=== PATIENT | female | born 1960 | race Caucasian/White ===

== ENCOUNTER → 2020-02-15 | Outpatient (CLI) | payer MEDICARE | LOC: M.RAD 13:30 | PROVIDERS: ATTEND Family Medicine | DX: Z78.0 Asymptomatic menopausal state (principal) ==

== ENCOUNTER 2020-11-18 19:32 | Emergency (ER) | payer MEDICARE ==
[~2020-11-18] VITALS: Ht 167.6 cm; Wt 95.3 kg
[2020-11-18] MEDS ORDERED: TIZANIDINE HCL4 M1 PO (20:21)
[2020-11-18] MEDS ORDERED: OMEPRAZOLE40 MG PO (20:21)
[2020-11-18] MEDS ORDERED: LEXAPRO 10 MG T10 MG PO (20:22)
[2020-11-18] MEDS ORDERED: HYDROCHLOROTHIA25 M1 PO (20:22)
[2020-11-18] MEDS ORDERED: MINIPRESS2 MG PO (20:22)
[2020-11-18] MEDS ORDERED: FLONASE 0.05%50 MCG NARES (20:23)
[2020-11-18] MEDS ORDERED: VITAMIN D310 MC2 PO (20:23)
[2020-11-18] MEDS ORDERED: HYDROXYZINE HCL50 MG PO (20:23)
[2020-11-18] MEDS ORDERED: MELATONIN10 M3 PO (20:24)
[2020-11-18] MEDS ORDERED: ADULT ASPIRIN R81 MG PO (20:24)
[2020-11-19] MEDS ORDERED: PREDNISONE50 MG PO (00:06)
[2020-11-19 00:18] VITALS: BP 147/81
== END 2020-11-19 00:18 | disposition home or self-care (01) ==
LOC: M.ERS 19:32
DX: J40 Bronchitis, not specified as acute or chronic (principal); Z20.822 Contact with and (suspected) exposure to COVID-19; I10 Essential (primary) hypertension; K21.9 Gastro-esophageal reflux disease without esophagitis; M79.7 Fibromyalgia; Z88.6 Allergy status to analgesic agent; Z91.040 Latex allergy status

== ENCOUNTER 2020-11-21 20:24 | Inpatient (IN) | payer MEDICARE ==
[~2020-11-21] VITALS: Ht 167.6 cm; Wt 92.1 kg
[~2020-11-21 20:24] MED LIST: ADULT ASPIRIN R81 MG PO; FLONASE 0.05%50 MCG NARES; HYDROCHLOROTHIA25 M1 PO; HYDROXYZINE HCL50 MG PO; LEXAPRO 10 MG T10 MG PO; MELATONIN10 M3 PO; MINIPRESS2 MG PO; OMEPRAZOLE40 MG PO; PREDNISONE50 MG PO; TIZANIDINE HCL4 M1 PO; VITAMIN D310 MC2 PO
[2020-11-21 20:27] VITALS: BP 147/76
[2020-11-21 20:51] LABS: HEMATOCRIT 39.7 % (37.0-47.0); HEMOGLOBIN 13.1 gm/dL (12.0-15.0); MCH 28.1 pg (26.0-34.0); MPV 7.1 fl. (7.2-11.1); NUCLEATED RBCS 0 /100WBC; PLATELET COUNT* 397 thou/uL (150-400); RBC 4.67 mil/uL (4.20-5.00); RDW-CV 13.9 % (10.5-14.5)
[2020-11-21 21:00] LABS: CALCIUM 8.8 mg/dL (8.5-10.1); CREATININE 1.2 mg/dL (0.6-1.3); POTASSIUM 3.8 mmol/L (3.5-5.1)
[2020-11-21 21:15] LABS: ALBUMIN 3.7 g/dL (3.4-5.0); MAGNESIUM 1.8 mg/dL (1.8-2.4); TOTAL BILIRUBIN 0.3 mg/dL (<0.1-1.0); TOTAL PROTEIN 8.2 g/dL (6.4-8.2)
[2020-11-21 21:17] LABS: BE 1.4 mmol/L (-2 to +3); PCO2 37.9 mmHg (35.0-45.0); PO2 67.3 mmHg (75.0-100.0); pH 7.443 (7.340-7.450)
[2020-11-21 21:47] LABS: ABSOLUTE LYMPHOCYTES 1.8 thou/uL (0.8-5.3); ABSOLUTE MONOCYTES 0.4 thou/uL (0.0-1.2); ABSOLUTE NEUTROPHILS 10.8 thou/uL (1.6-8.1); PLATELET ESTIMATE ADEQUATE
[2020-11-21 22:12] LABS: URINE BILIRUBIN NEGATIVE (Negative); URINE BLOOD NEGATIVE (Negative); URINE CLARITY CLEAR; URINE COLOR YELLOW; URINE GLUCOSE-RANDOM 3+ (Negative); URINE KETONES NEGATIVE (Negative); URINE LEUKOCYTES-REFLEX NEGATIVE (Negative); URINE NITRITE-REFLEX NEGATIVE (Negative); URINE PROTEIN NEGATIVE (Negative); URINE UROBILINOGEN 0.2 E.U./dl (0.2-1.0)
[2020-11-22 02:00] VITALS: BP 123/62
[2020-11-22 06:00] VITALS: BP 130/71
[2020-11-22 10:00] VITALS: BP 131/76
--- NOTE | 2020-11-22 11:26 | EKG ---
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 : 1960 Requested By: Jenn Ferguson Order Number: [id number] MD: Eder Candelario Measurements Intervals [place] Rate: 85 P: 21 MS: 155 QRS: -20 QRSD: 118 T: 61 QT: 383 QTc: 456 Interpretive Statements Sinus rhythm Nonspecific intraventricular conduction delay Borderline T abnormalities, anterior leads Baseline wander in lead(s) V5 No previous ECG available for comparison Electronically Signed On 11-22-2020 11:25:54 CDT by Eder Candelario [email or web address] <ELECTRONICALLY SIGNED> By: Eder Candelario MD, [facility] 11/22/20 1125 31 31 Eder Candelario MD, [facility] /EPI
[2020-11-22 14:00] VITALS: BP 143/76
--- NOTE | 2020-11-22 16:46 | NUR ---
DAUGHTER IS PATIENT'S ONLY CONTACT AND ONLY AUTHORIZED PERSON TO RELEASE MEDICAL INFORMATION TO
[2020-11-22 18:00] VITALS: BP 136/58
[2020-11-22 22:00] VITALS: BP 136/70
[2020-11-23 02:00] VITALS: BP 121/64
[2020-11-23 06:09] VITALS: BP 123/55
[2020-11-23 10:09] VITALS: BP 122/53
[2020-11-23 10:10] LABS: BE 0.9 mmol/L (-2 to +3); PCO2 40.7 mmHg (35.0-45.0); PO2 66.3 mmHg (75.0-100.0); pH 7.415 (7.340-7.450)
[2020-11-23 10:11] LABS: ABSOLUTE LYMPHOCYTES 2.1 thou/uL (0.8-5.3); ABSOLUTE MONOCYTES 0.6 thou/uL (0.0-1.2); BASOPHILS 0.3 %; EOSINOPHILS 0.2 %; HEMATOCRIT 34.6 % (37.0-47.0); HEMOGLOBIN 11.4 gm/dL (12.0-15.0); LYMPHOCYTES 14.1 %; MCHC 32.9 g/dL (28.0-37.0); MCV 84.9 fL (80.0-100.0); MONOCYTES 4.4 %; NUCLEATED RBCS 0 /100WBC; PLATELET COUNT* 344 thou/uL (150-400); RBC 4.08 mil/uL (4.20-5.00); RDW-CV 14.2 % (10.5-14.5); WBC 14.8 thou/uL (4.0-11.0)
[2020-11-23 10:19] LABS: CREATININE 0.7 mg/dL (0.6-1.3); POTASSIUM 3.8 mmol/L (3.5-5.1)
[2020-11-23 10:23] LABS: ALBUMIN 2.5 g/dL (3.4-5.0); TOTAL BILIRUBIN 0.4 mg/dL (<0.1-1.0); TOTAL PROTEIN 6.8 g/dL (6.4-8.2)
[2020-11-23 13:55] VITALS: BP 101/55
--- NOTE | 2020-11-23 14:13 | 2DMMODE ---
[place] [address] 2 D/M-MODE ECHOCARDIOGRAM Name: SUSAN GONZALEZ Room: [place] [address] ADM IN [facility]#: [id number] Admission: 11/21/20 Attend Phys: Amandeep Brown Discharge: Date of : 58 Date of Service: 11/23/20 1413 Report #: [id number] THIS REPORT FOR: cc: Pedro Hollingsworth Adam J DO Blick, David R. MD [facility] ~ APPROVED REPORT Study performed: 11/23/2020 12:46:39 EXAM: Comprehensive 2D, Doppler, and color-flow Echocardiogram Patient Location: In-Patient Room #: er Status: routine BSA: 2.01 HR: 625 bpm BP: 126/56 mmHg Rhythm: NSR Other Information Study Quality: Good Indications Chest Pain 2D Dimensions IVSd: 12.07 (7-11mm) LVOT Diam: 20.36 (18-24mm) LVDd: 42.69 mm PWd: 11.40 (7-11mm) Ascending Ao: 31.40 (22-36mm) LVDs: 26.98 (25-40mm) Aortic Root: 31.68 mm Volumes Left Atrial Volume (Systole) LA ESV Index: 19.70 mL/m2 Aortic Valve AoV Peak Cj.: 1.41 m/s AO Peak Gr.: 7.97 mmHg LVOT Max P.22 mmHg AO Mean Gr.: 3.65 mmHg LVOT Mean P.69 mmHg LVOT Max V: 1.25 m/s AO V2 VTI: 27.59 cm LVOT Mean V: 0.74 m/s CHALINO (VTI): 3.21 cm2 LVOT V1 VTI: 27.23 [place] [address] 2 D/M-MODE ECHOCARDIOGRAM Name: SUSAN GONZALEZ Room: [address] IN [facility]#: [id number] Admission: 11/21/20 Attend Phys: Amandeep Brown Discharge: Date of : 58 Date of Service: 11/23/20 1413 Report #: [id number] Mitral Valve E/A Ratio: 1.23 MV Decel. Time: 207.31 ms MV E Max Cj.: 0.99 m/s MV PHT: 60.12 ms MVA (PHT): 3.66 cm2 TDI E/Lateral E': 9.90 E/Medial E': 9.00 Medial E' Cj.: 0.11 m/s Lateral E' Cj.: 0.10 m/s Pulmonary Valve PV Peak Cj.: 0.90 m/s PV Peak Gr.: 3.27 mmHg Tricuspid Valve RAP Estimate: 5.00 mmHg TR Peak Gr.: 29.04 mmHg RVSP: 34.00 mmHg PA Pressure: 34.00 mmHg Left Ventricle The left ventricle is normal size. There is normal LV segmental wall motion. Mild concentric left ventricular hypertrophy. Left ventricular systolic function is normal. The left ventricular ejection fraction is within the normal range. LVEF is 55-60%. The left ventricular diastolic function is normal. Right Ventricle The right ventricle is normal size. The right ventricular systolic function is normal. Atria The left atrium size is normal. The right atrium size is normal. Aortic Valve The aortic valve is normal in structure. No aortic regurgitation is present. There is no aortic valvular stenosis. Mitral Valve The mitral valve is normal in structure. Trace mitral regurgitation. No evidence of mitral valve stenosis. Tricuspid Valve The tricuspid valve is normal in structure. Mild tricuspid regurgitation. estimated pa pressure 35 [place] [address] 2 D/M-MODE ECHOCARDIOGRAM Name: SUSAN GONZALEZ Room: [address] IN [facility]#: [id number] Admission: 11/21/20 Attend Phys: Amandeep Brown Discharge: Date of : 58 Date of Service: 11/23/20 1413 Report #: [id number] Pulmonic Valve The pulmonary valve is normal in structure. There is no pulmonic valvular regurgitation. Great Vessels The aortic root is normal in size. IVC is normal in size and collapses >50% with inspiration. Pericardium There is no pericardial effusion. <Conclusion> Mild concentric left ventricular hypertrophy. LVEF is 55-60%. Trace mitral regurgitation. <ELECTRONICALLY SIGNED> By: Eder Candelario MD, [facility] 11/23/20 1413 141 141 Eder Candelario MD, [facility] /INF
[2020-11-23 17:53] VITALS: BP 130/65
[2020-11-23 20:13] LABS: CALCIUM 7.9 mg/dL (8.5-10.1); MAGNESIUM 1.8 mg/dL (1.8-2.4); POTASSIUM 3.8 mmol/L (3.5-5.1)
[2020-11-23 20:18] LABS: APTT 28.9 Seconds (25.0-31.3); INR 1.1; PROTIME 11.4 Seconds (9.20-11.50)
[2020-11-23 21:00] VITALS: BP 130/68
[2020-11-23 22:13] LABS: INFLUENZA A ANTIGEN Negative (Negative); INFLUENZA B ANTIGEN Negative (Negative)
[2020-11-24] VITALS (7 sets, daily range): BP systolic 99–123; BP diastolic 49–63
[2020-11-24 05:22] LABS: HEMATOCRIT 33.4 % (37.0-47.0); HEMOGLOBIN 10.8 gm/dL (12.0-15.0); MCH 27.7 pg (26.0-34.0); MCHC 32.3 g/dL (28.0-37.0); MCV 85.7 fL (80.0-100.0); MPV 7.1 fl. (7.2-11.1); NUCLEATED RBCS 0 /100WBC; PLATELET COUNT* 369 thou/uL (150-400); RDW-CV 13.5 % (10.5-14.5); WBC 15.5 thou/uL (4.0-11.0)
[2020-11-24 05:31] LABS: ALBUMIN 2.3 g/dL (3.4-5.0); CALCIUM 8.1 mg/dL (8.5-10.1); CREATININE 0.7 mg/dL (0.6-1.3); MAGNESIUM 2.5 mg/dL (1.8-2.4); POTASSIUM 4.3 mmol/L (3.5-5.1); TOTAL BILIRUBIN 0.3 mg/dL (<0.1-1.0); TOTAL PROTEIN 6.8 g/dL (6.4-8.2)
[2020-11-24 06:19] LABS: ABSOLUTE LYMPHOCYTES 1.4 thou/uL (0.8-5.3); ABSOLUTE MONOCYTES 0.2 thou/uL (0.0-1.2); PLATELET ESTIMATE ADEQUATE
--- NOTE | 2020-11-24 14:54 | NUR ---
Pt covid positive. Spoke with dtr via phone. Pt is A&O. Resides at home with sig other. Normally independent. No DME. Hx of HH. No hx of SNF. Goal is home at dc, dtr open to HH and is also able to take off work if Pt requires more assist at home. PUI. Pt on 15L NRB, bipap 60% fio2. DPOA completed today.
[2020-11-24 19:15] LABS: URINE BILIRUBIN NEGATIVE (Negative); URINE BLOOD 2+ (Negative); URINE CLARITY CLEAR; URINE COLOR YELLOW; URINE GLUCOSE-RANDOM NEGATIVE (Negative); URINE KETONES TRACE (Negative); URINE LEUKOCYTES NEGATIVE (Negative); URINE NITRITE NEGATIVE (Negative); URINE PROTEIN 1+ (Negative); URINE SPECIFIC GRAVITY 1.025 (1.005-1.030); URINE UROBILINOGEN 0.2 E.U./dl (0.2-1.0)
[2020-11-24 19:29] LABS: BACTERIA 1-9 Few /HPF (None Seen); CASTS None Seen /LPF (None Seen); CRYSTALS None Seen /LPF (None Seen); MUCUS 0-3 Light strn/LPF (None Seen); SQUAMOUS 0-3 Few /LPF (0-3)
[2020-11-24 19:30] LABS: URINE RBC 3-10 Few /HPF (0-2); URINE WBC 0-5 Rare /HPF (0-5)
--- NOTE | 2020-11-24 19:47 | CON ---
[address] [address] CONSULTATION Name: ELBERTDELTASUSAN J Room: [address] IN ..#: [id number] Admission: 11/21/20 Attend Phys: Hector Thayer Discharge: Date of : 58 Report #: [id number] THIS REPORT FOR: cc: Pedro Hollingsworth Adam J DO Pervez, Adeel MD ~ DATE OF CONSULTATION: 11/23/2020 REQUESTING PHYSICIAN: Amandeep Brown DO INDICATION FOR CONSULTATION: Acute hypoxemic respiratory failure/pulmonary infiltrates. HISTORY OF PRESENT ILLNESS: This is a 59-year-old female. She has an extensive history of smoking and she still smokes. The patient also has a history of obstructive sleep apnea and has been on a CPAP at home. She says that she was having night terrors and therefore discontinued use. She does not carry a diagnosis of COPD, but does use an inhaler at home. She does not have a previous history of diabetes. The patient initially came to our Emergency Room on 11/18/2020. She tested negative for COVID-19 and was discharged home, presented with shortness of breath. The patient subsequently came back to the Emergency Room again on 11/21 and has been there since then awaiting a bed. The patient was ordered prednisone on her initial visit on 11/18. I do not see any antibiotic ordered for her at that time as the patient was reported to have just come off of Zithromax. Since her second presentation, there has been a progressive increase in her oxygen needs, and from 2 liters nasal cannula, the patient is now up to 15 liters. The patient has received IV fluids and then Lasix as well. She says she has increasing shortness of breath. She has also had a cough. There is only small amount of sputum production. There is no chest pain. She is not describing upper respiratory complaints. There is mild swelling of lower extremities. She has had disturbed sleep at night as well as sleepiness during the day. These complaints are not significantly different from her baseline. The patient reports that earlier she did have upper respiratory complaints including congestion, headache and nasal discharge. She does report headache and dizziness. REVIEW OF SYSTEMS: Twelve-point review of systems is negative except as mentioned above. PAST MEDICAL HISTORY: 1. Obstructive sleep apnea. Has used CPAP in the past[place] [address] CONSULTATION Name: SUSAN GONZALEZ Room: [address]#: [id number] Admission: 11/21/20 Attend Phys: Hector Thayer Discharge: Date of : 58 Report #: [id number] night terrors. Use of an inhaler at home for what she describes as chronic bronchitis. 2. Hypertension. 3. Gastroesophageal reflux disease. 4. Depression. 5. Anxiety. 6. Fibromyalgia. 7. Stroke in 2004 after having a hysterectomy. 8. Recent echocardiogram. Left ventricular ejection fraction is 55-60% with right heart pressure of 34. IMMUNIZATION HISTORY: The patient is fully vaccinated with 2 doses of Moderna COVID-19 vaccine administered in July. SOCIAL HISTORY: There is an extensive history of smoking for several decades. She still smokes. She is reported to use alcohol as well. I am unable to quantify at this time. There is no known history of excessive alcohol use. No known history of illegal drug use. CURRENT MEDICATIONS: List in [facility] reviewed. HOME MEDICATIONS: List in [employer] reviewed. ALLERGIES: ASPIRIN, ESTROGENS, STATINS and LATEX. FAMILY HISTORY: There is no pertinent family history: There is no history of COVID-19 in her family. PHYSICAL EXAMINATION: GENERAL: She appears to be short of breath at rest. She is alert, awake and oriented. VITAL SIGNS: She has a pulse of 74 and a blood pressure of 130/65. She is saturating 92%. She is on a high flow green nasal cannula at 15 liters. Respiratory rate is elevated to 23, 24. She is afebrile with a temperature of 35.7. Body mass index is 33. HEENT: Head is normocephalic and atraumatic. She appears to have a narrow airway. NECK: Does not show raised JVP, asymmetry, mass or lymph nodes. CHEST: Symmetrical expansion on inspection and palpation. On auscultation, breath sounds are bilaterally equal, but decreased. Expirations are prolonged. There are occasional end-expiratory wheezes heard. HEART: Regular. There is no murmur. ABDOMEN: Soft and nontender. EXTREMITIES: Lower extremities show trace edema. [place] [address] CONSULTATION Name: LISASUSAN Harpal Room: [address] IN [facility].#: [id number] Admission: 11/21/20 Attend Phys: Hector Thayer Discharge: Date of : 58 Report #: [id number] SKIN: Dry and intact. NEUROLOGICAL: Moves all extremities bilaterally equally and spontaneously with no focal deficit identified. IMAGING DATA: The patient's chest x-ray is reviewed and compared with the patient's previous chest x-rays. There are bilateral interstitial infiltrates. There is significant progression of these infiltrates. LABORATORY DATA: Lab work is in [facility]. It has been reviewed. COVID-19 antigen is negative twice. The patient's COVID-19 PCR is also negative. ASSESSMENT AND PLAN: 1. Acute hypoxemic respiratory failure. The patient does appear to have a respiratory tract infection. While atypical organisms can also lead to this picture, findings are more consistent with a viral respiratory tract infection. Note that she has been vaccinated for COVID-19 and she has tested negative now as well. We will place her on a BiPAP while asleep as she has a history of obstructive sleep apnea. We will continue to titrate oxygen. Recommended avoiding supine sleep. 2. Viral respiratory tract infection. These days, such a picture is most commonly associated with COVID-19; however, it is noted that the patient tested negative for the COVID-19 antigen twice. She has tested negative for the COVID-19 PCR and she has also received 2 doses of Moderna COVID-19 vaccine. Therefore, while I cannot completely rule out COVID-19 at this time, we have to consider the possibility of other viral respiratory tract infections as well. Therefore, I requested a rapid influenza swab which came back negative. Pending further evaluation with a viral respiratory panel, I did order Tamiflu. Recommend also obtaining COVID-19 antibodies. Repeating a COVID-19 PCR may also be a consideration. 3. Pulmonary infiltrates. Various cultures and serologies have been sent. I agree with Levaquin and we will continue. I would like to cover MRSA as well pending further evaluation. The patient will likely need diuresis and will be higher than average risk for vancomycin nephrotoxicity. Therefore, I would order linezolid for her. I discontinued Lexapro for the duration that she is on linezolid. 4. Bronchospasm/history of chronic bronchitis/suspected chronic obstructive pulmonary disease/smoker. She received Solu-Medrol 125 mg earlier today in addition to 6 mg of Decadron. I would initially start with Decadron 8 mg b.i.d. tomorrow and then we will titrate dose per response. Nebulized bronchodilators are also ordered. 5. Elevated D-dimer. Proceed with a CTA chest. 6. Fluid overload. Discontinued IV fluids. I ordered Lasix and Aldactone for tomorrow morning. If she tolerates, then we will give her more diuresis. 7. Hypotension. For now, I will hold prazosin [place] [address] CONSULTATION Name: SUSAN GONZALEZ Room: [address] IN [facility]#: [id number] Admission: 11/21/20 Attend Phys: Hector Thayer Discharge: Date of : 58 Report #: [id number] 8. Hyperglycemia. The patient was on prednisone immediately prior to this hospitalization. She does not have a previous diagnosis of diabetes. Therefore, this could be steroid-induced hyperglycemia as well. May consider obtaining a hemoglobin A1c to evaluate further, but I would defer to the primary service. 9. Deep venous thrombosis prophylaxis. Lovenox. 10. Gastrointestinal prophylaxis/history of gastroesophageal reflux disease. PPI. 11. Clostridium difficile prophylaxis. Lactinex. The patient is critically ill at this time with acute hypoxemic respiratory failure. Total time spent providing critical care to this patient today exceeds 45 minutes. <ELECTRONICALLY SIGNED> By: Nir Stewart MD 11/24/20 1947 [id number] Stewart MD /nt
[2020-11-25 00:12] VITALS: BP 135/63
[2020-11-25 04:21] VITALS: BP 131/64
[2020-11-25 05:11] LABS: ABSOLUTE BASOPHILS 0.1 thou/uL (0.0-0.2); ABSOLUTE LYMPHOCYTES 1.3 thou/uL (0.8-5.3); ABSOLUTE MONOCYTES 0.6 thou/uL (0.0-1.2); ABSOLUTE NEUTROPHILS 14.2 thou/uL (1.6-8.1); BASOPHILS 0.6 %; EOSINOPHILS 0.1 %; HEMATOCRIT 34.4 % (37.0-47.0); HEMOGLOBIN 11.1 gm/dL (12.0-15.0); LYMPHOCYTES 8.1 %; MCH 27.5 pg (26.0-34.0); MCHC 32.3 g/dL (28.0-37.0); MCV 85.3 fL (80.0-100.0); MONOCYTES 3.9 %; MPV 6.9 fl. (7.2-11.1); NUCLEATED RBCS 0 /100WBC; POLYS 87.3 %; RBC 4.03 mil/uL (4.20-5.00); RDW-CV 13.9 % (10.5-14.5); WBC 16.3 thou/uL (4.0-11.0)
[2020-11-25 05:26] LABS: PLATELET COUNT* 455 thou/uL (150-400)
[2020-11-25 08:00] VITALS: BP 142/65; BP 157/67
[2020-11-25 12:00] VITALS: BP 129/67
--- NOTE | 2020-11-25 13:38 | NUR ---
Anticipate dc in a few days. Remains on bipap 15L 100% fio2
[2020-11-25 16:00] VITALS: BP 140/60
[2020-11-25 21:00] VITALS: BP 175/76
[2020-11-25 23:06] LABS: MYCOPLASMA PNEUMONIA IgG 198 U/mL (0-99); MYCOPLASMA PNEUMONIA IgM <770 U/mL (0-769)
[2020-11-26 00:10] VITALS: BP 142/64
[2020-11-26 04:39] VITALS: BP 148/68
--- NOTE | 2020-11-26 05:44 | NUR ---
PT AO X4 PRONING IN BED AT TIME OF ASSESSMENT, SHE STAYED THIS WAY UNTIL EARLY AM AND THEN TURNED OVER INTO [place]I [facility]LERS. SHE WORE BIPAP FOR THE MAJORITY OF THIS SHIFT. PT COMPLAINT OF CHRONIC BACK PAIN GIVEN HYDROCODONE WITH GOOD RELIEF. PT ON 16L HF NC OF NOW. PT REPORTS THICK GREEN SPUTUM FROM COUGH THAT IS JUST NOW LOSENING ENOUGH TO EXPECTORATE IT. PT ACCU CK HAS NOT NEEDED COVERAGE OF SSI THIS SHIFT. PT TAKING GOOD ORAL INTAKE. CALL LIGHT IN REACH
[2020-11-26 12:09] VITALS: BP 123/57
[2020-11-26 16:34] VITALS: BP 148/71
[2020-11-26 20:35] VITALS: BP 157/72
[2020-11-27 00:25] VITALS: BP 159/74
[2020-11-27 04:41] VITALS: BP 161/77
--- NOTE | 2020-11-27 05:21 | NUR ---
PT ON 10L HHFNC, ANXIOUS, PRN ATIVAN GIVEN. SHE IS UP TO THE BEDSIDE COMMODE, ALERT AND ORIENTED, SAT 94-95%. ALERT AND ORIENTED. RECEIVED ALL MEDS SCHEDULED.
[2020-11-27 08:55] VITALS: BP 147/76
[2020-11-27 12:00] VITALS: BP 146/73
[2020-11-27 16:00] VITALS: BP 166/68
[2020-11-27 21:02] VITALS: BP 137/64
[2020-11-28] VITALS: BP 154/72
[2020-11-28 04:00] VITALS: BP 150/73
--- NOTE | 2020-11-28 05:08 | NUR ---
PT REFUSED BIPAP 11/27/20
--- NOTE | 2020-11-28 05:14 | NUR ---
PT SLEPT COMFORTABLLY WITH BIPAP ON ALL SHIFT. SHE IS SAT 95%, SINUS RHYTHM ON MONITOR. SOA ON EXERTION, REQUESTED THAT CHRISTINA STAY IN PLACE, RECEIVED ALL MEDS SCHEDULED.
[2020-11-28 08:55] VITALS: BP 124/71
[2020-11-28] MEDS ORDERED: PREDNISONE 10 M10 MG PO (09:15)
[2020-11-28] MEDS ORDERED: METFORMIN HCL500 M3 PO (09:15)
[2020-11-28] MEDS ORDERED: DIFLUCAN200 MG PO (09:15)
[2020-11-28] MEDS ORDERED: VENTOLIN HFA 1818 GM INH (09:15)
[2020-11-28] MEDS ORDERED: ACIDOPHILUS1 EAC4 PO (09:15)
[2020-11-28 11:49] VITALS: BP 130/67
--- NOTE | 2020-11-28 14:26 | NUR ---
Nutrition: Pt admitted to COVID unit. H/o HTN. With hyperglycemia, no DM DX, on steroids. Assessed for LOS. Spoke with RN - pt has been eating well. Regular diet. Labs: BG 210, alb 2.3, prealb 13.7. No nutrition interventions at this time. Consider mild risk.
--- NOTE | 2020-11-28 14:30 | NUR ---
Covid positive. On 8L o2 without activity, anticipate higher o2 need with activity, continue to wean. Anticipate dc in a few days.
[2020-11-28 16:10] VITALS: BP 154/80
--- NOTE | 2020-11-28 18:45 | NUR ---
Pt c/o pain to R side/flank; see MAR. Reports she is dyspneic with exertion, also desats to 70s at times with activity. O2 has been as low as 4L at rest, but have titrated up and down throughout the day based on activity level. At this time O2 at 6L per [facility]. Otherwise VSS. Pt had bm today, and farrar was discontinued. Pt has voided this evening. IV infiltrated this am. D/W Dr. Brown, who said to leave IV out and he changed IV meds to po route. States he hopes to discharge patient tomorrow if she can pass rest & exercise eval with RT for home O2. Will continue to monitor.
[2020-11-29] VITALS (8 sets, daily range): BP systolic 87–165; BP diastolic 54–84
[2020-11-29 08:32] LABS: ABSOLUTE LYMPHOCYTES 1.3 thou/uL (0.8-5.3); ABSOLUTE MONOCYTES 0.4 thou/uL (0.0-1.2); ABSOLUTE NEUTROPHILS 13.4 thou/uL (1.6-8.1); BASOPHILS 0.2 %; EOSINOPHILS 0.1 %; HEMATOCRIT 38.2 % (37.0-47.0); HEMOGLOBIN 12.8 gm/dL (12.0-15.0); LYMPHOCYTES 8.8 %; MCH 28.6 pg (26.0-34.0); MCHC 33.6 g/dL (28.0-37.0); MONOCYTES 2.9 %; MPV 6.7 fl. (7.2-11.1); NUCLEATED RBCS 0 /100WBC; PLATELET COUNT* 528 thou/uL (150-400); RDW-CV 13.9 % (10.5-14.5); WBC 15.2 thou/uL (4.0-11.0)
[2020-11-29 09:04] LABS: ALBUMIN 2.7 g/dL (3.4-5.0); CALCIUM 8.9 mg/dL (8.5-10.1); CREATININE 0.8 mg/dL (0.6-1.3); MAGNESIUM 2.1 mg/dL (1.8-2.4); POTASSIUM 4.7 mmol/L (3.5-5.1); TOTAL BILIRUBIN 0.2 mg/dL (<0.1-1.0); TOTAL PROTEIN 7.2 g/dL (6.4-8.2)
--- NOTE | 2020-11-29 13:59 | NUR ---
Anticipate dc in a few days. Pt on 7L, Pt will need an ex ox at dc.
--- NOTE | 2020-11-29 16:14 | NUR ---
A&OX 4, PWD. PT WAS ON 9L HF . PT TURNED DOWN TO 6L HF AND NOW SATING 94%. TALKED TO CASE MANAGEMENT ABOUT PT GOING HOME ON . SHE WILL WORK ON SETTING IT UP. UP AD-MAE TO COMMODE WITH STEADY GAIT. NO IV ACCESS. WILL CONTINUE TO MONITOR.
--- NOTE | 2020-11-29 19:51 | NUR ---
A&OX 4, PWD. PT DISCHARGED TO HOME WITH HOME 02. 2 TANKS BROUGHT IN. PT TO BE ON 5L NC AT REST AND 7L NC WITH ACTIVITY. PT VERBALIZED UNDERSTANDING TO ALL DISCHARGE INSTRUCTIONS AND FOLLOW UP DOCTOR VISITS. 4 SCRIPTS SENT TO PT'S PHARMACY. PT DISCHARGED VIA W/C WITH DAUGHTER TO DAUGHTERS HOME.
--- NOTE | 2020-11-30 07:28 | NUR ---
Pt discharged home last evening, o2 arranged through [employer]. Late HH orders received, CM will contact Pt this AM and arrange HH if Pt wants it. Per nurse, Pt dc to her dtr's home.
[2020-11-30 08:55] VITALS: BP 146/64
== END 2020-11-29 19:46 | disposition home health service (06) | DRG 177 ==
LOC: M.ERS 20:24 → M.TBA-ER 21:47 → M.ORTHSURG 11-24 01:41
PROVIDERS: Internal Medicine Critical Care Medicine; Personal Emergency Response Attendant; ADMIT Internal Medicine; ATTEND Internal Medicine
DX: J15.6 Pneumonia due to other Gram-negative bacteria (principal); J96.01 Acute respiratory failure with hypoxia; U07.1 COVID-19; I10 Essential (primary) hypertension; K21.9 Gastro-esophageal reflux disease without esophagitis; F32.9 Major depressive disorder, single episode, unspecified; F41.9 Anxiety disorder, unspecified; G47.33 Obstructive sleep apnea (adult) (pediatric); M79.7 Fibromyalgia; I95.9 Hypotension, unspecified; J42 Unspecified chronic bronchitis; E11.65 Type 2 diabetes mellitus with hyperglycemia; F43.10 Post-traumatic stress disorder, unspecified; F17.210 Nicotine dependence, cigarettes, uncomplicated; J98.8 Other specified respiratory disorders; Z20.822 Contact with and (suspected) exposure to COVID-19; Z88.8 Allergy status to other drugs, medicaments and biological substances; Z72.89 Other problems related to lifestyle; Z91.040 Latex allergy status; Z79.899 Other long term (current) drug therapy; Z90.710 Acquired absence of both cervix and uterus; Z86.73 Personal history of transient ischemic attack (TIA), and cerebral infarction without residual deficits

== ENCOUNTER 2020-12-16 12:17 | Emergency (ER) | payer MEDICARE ==
[~2020-12-16] VITALS: Ht 167.6 cm; Wt 92.1 kg
[~2020-12-16 12:17] MED LIST changes: +ACIDOPHILUS1 EAC4 PO; +DIFLUCAN200 MG PO; +METFORMIN HCL500 M3 PO; +PREDNISONE 10 M10 MG PO; +VENTOLIN HFA 1818 GM INH
[2020-12-16 15:56] LABS: ABSOLUTE BASOPHILS 0.1 thou/uL (0.0-0.2); ABSOLUTE EOSINOPHILS 0.4 thou/uL (0.0-0.7); ABSOLUTE LYMPHOCYTES 4.3 thou/uL (0.8-5.3); ABSOLUTE MONOCYTES 0.7 thou/uL (0.0-1.2); ABSOLUTE NEUTROPHILS 6.2 thou/uL (1.6-8.1); BASOPHILS 0.7 %; EOSINOPHILS 3.8 %; HEMATOCRIT 34.7 % (37.0-47.0); HEMOGLOBIN 11.7 gm/dL (12.0-15.0); LYMPHOCYTES 36.6 %; MCH 28.7 pg (26.0-34.0); MCHC 33.7 g/dL (28.0-37.0); MCV 85.3 fL (80.0-100.0); MONOCYTES 6.3 %; MPV 6.5 fl. (7.2-11.1); NUCLEATED RBCS 0 /100WBC; PLATELET COUNT* 313 thou/uL (150-400); POLYS 52.6 %; RBC 4.07 mil/uL (4.20-5.00); RDW-CV 14.6 % (10.5-14.5); WBC 11.7 thou/uL (4.0-11.0)
--- NOTE | 2020-12-16 15:58 | EKG ---
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 : 1960 Requested By: Cathleen Padilla Order Number: [id number] MD: Eder Candelario Measurements Intervals [place] Rate: 100 P: 31 PA: 144 QRS: -8 QRSD: 103 T: 38 QT: 423 QTc: 546 Interpretive Statements Sinus tachycardia Abnormal R-wave progression, late transition Prolonged QT interval Baseline wander in lead(s) II,III,aVR,aVL,aVF,V5 Compared to ECG 11/21/2020 20:32:36 Prolonged QT interval now present Sinus rhythm no longer present T-wave abnormality no longer present Electronically Signed On 12-16-2020 15:57:56 CDT by Eder Candelario [email or web address] <ELECTRONICALLY SIGNED> By: Eder Candelario MD, [facility] 12/16/20 1557 1225 1225 Eder Candelario MD, [facility] /EPI
[2020-12-16 16:02] LABS: CALCIUM 8.1 mg/dL (8.5-10.1)
[2020-12-16 16:04] LABS: POTASSIUM 2.8 mmol/L (3.5-5.1)
[2020-12-16 16:07] LABS: ALBUMIN 3.7 g/dL (3.4-5.0); TOTAL BILIRUBIN 0.2 mg/dL (<0.1-1.0)
[2020-12-16] MEDS ORDERED: K-DUR10 MEQ PO (18:49)
[2020-12-16] MEDS ORDERED: APAP W/CODEINE1 TA2 PO (18:55)
[2020-12-16] MEDS ORDERED: DOXYCYCLINE 10100 MG PO (18:55)
[2020-12-16] MEDS ORDERED: PEPCID20 MG PO (19:10)
[2020-12-16 19:16] VITALS: BP 160/84
== END 2020-12-16 19:16 | disposition home or self-care (01) ==
LOC: M.ERS 12:17
PROVIDERS: Physician Assistant
DX: R06.00 Dyspnea, unspecified (principal); Z20.822 Contact with and (suspected) exposure to COVID-19; E87.6 Hypokalemia; I10 Essential (primary) hypertension; K21.9 Gastro-esophageal reflux disease without esophagitis; Z79.899 Other long term (current) drug therapy; Z88.6 Allergy status to analgesic agent; Z88.8 Allergy status to other drugs, medicaments and biological substances; Z91.040 Latex allergy status

== ENCOUNTER → 2021-02-02 | Outpatient (CLI) | payer OTHER ==
[~2021-02-02] MED LIST changes: +APAP W/CODEINE1 TA2 PO; +DOXYCYCLINE 10100 MG PO; +K-DUR10 MEQ PO; +PEPCID20 MG PO
== END ==
LOC: M.RAD 14:58
PROVIDERS: ATTEND Internal Medicine Pulmonary Disease
DX: J84.89 Other specified interstitial pulmonary diseases (principal); Z86.16 Personal history of COVID-19

== ENCOUNTER → 2021-03-20 | Outpatient (CLI) | payer OTHER | LOC: M.RAD 12:25 | PROVIDERS: ATTEND Internal Medicine Pulmonary Disease | DX: J84.89 Other specified interstitial pulmonary diseases (principal); R91.8 Other nonspecific abnormal finding of lung field; Z86.16 Personal history of COVID-19 ==